=== PATIENT | male | born 2000 | race Caucasian/White ===

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

== ENCOUNTER 2019-09-11 15:40 | Emergency (ER) | payer OTHER, SELFPAY ==
[2019-09-11 15:42] VITALS: BP 154/86; PULSE 84; RESP 17; TEMP 36.2; O2SAT 98; BMI 48.1
--- NOTE | 2019-09-11 16:00 | ED.VISSUMM ---
- ER Visit Summary Date of Service: 09/11/19 Chief Complaint: Back pain History of Present Illness: The patient is a 18 M with no primary care physician. He reports he has low back pain that began approximately 2 years ago. He reports that this increased yesterday. He denies any trauma. No fall, MVA, or change in activity. He reports that the sharp pain is 10 of 10 severity. Is worsened by movement, twisting, or standing up straight. Second Tylenol and ibuprofen without relief. States that radiates down the back of both legs to the level of his knee. He denies any problems with his bowels or his bladder. No groin numbness. No red flags. Physical Examination: Vitals: Stable. Afebrile. General: A&O x 3. NAD. Cardiovascular exam: Regular rate and rhythm, no murmur, rub or gallop. Respiratory exam: Clear to auscultation bilaterally. No wheezes or stridor. Abdominal exam: Soft, nontender, nondistended, normal bowel sounds. No peritoneal signs. Back: Diffuse moderate tenderness to palpation over the lumbar spine and the paraspinous musculature in the lumbar region. No point tenderness. Negative straight leg bilaterally. 5/5 DF, PF, EHL bilaterally. Normal sensation to light touch throughout. Extremity: No clubbing, cyanosis, or edema. Emergency Department Course and Treatment: Patient was given Toradol, Norflex IM and [place] p.o. Treatment Plan: Had a prolonged discussion with the patient about symptomatic treatment. He is instructed to use warm compresses and a TENS unit. He was given a prescription for naproxen, Flexeril, and [address] [place]. Instructed follow-up Dr. Booker in 1 week if not improving. The signs and symptoms of cauda equina syndrome were discussed. He is instructed return for these. Disposition: To home in improved and stable condition. Impression: 1. Low back pain, acute on chronic. This note was generated with [employer] dictation software. It may contain incorrect words, spelling, and punctuation that were not noted in review of the chart prior to signing ED Disposition - Plan for ED Patient: Disposition: Home or Assisted Living Instructions: ED LUMBAR RADICULOPATHY Prescriptions: cycloBENZAPRine HCl [Flexeril] 10 mg PO TID PRN #20 tab PRN Reason: Muscle Spasm Prescription Printed Naproxen [Naprosyn] 500 mg PO BID #14 tab Prescription Printed Hydrocodone Bitart/Apap 5-325 [[place] 5MG-325MG] 1 tab PO Q4H PRN PRN 2 Days #10 tab PRN Reason: Pain Prescription Printed Referrals: Izzy Booker MD [STAFF PHYSICIAN] - 1 Week
[2019-09-11] MEDS: Ketorolac 60 MG/2 ML Vial IM (16:05)
[2019-09-11] MEDS: HYDROcodone Bitartrate/Apap 5/325 Tablet PO (16:05)
[2019-09-11] MEDS: Orphenadrine 60 MG/2 ML Ampul IM (16:05)
[2019-09-11 16:42] VITALS: BP 143/71; PULSE 84; RESP 18
== END 2019-09-11 16:51 | disposition home or self-care (01) ==
PROVIDERS: Emergency Provider Emergency Medicine
DX: M54.5 Low back pain (principal); G89.29 Other chronic pain
CPT/HCPCS: 96372; 99284

== ENCOUNTER → 2019-09-23 12:37 | Outpatient (CLI) | payer OTHER, SELFPAY ==
[2019-09-11 15:42] VITALS: BMI 48.1
--- NOTE | 2019-09-23 12:45 | MRI_ITS ---
STUDY: MRI LUMBAR SPINE WITHOUT CONTRAST REASON FOR EXAM: Male, 18 years old. SEVERE SHARP BACK PAIN RADIATES INTO LEGS POSTERIORLY BILATERALLY, DIFFICULTY WALKING, STANDING AND SITTING TECHNIQUE: Standardized fat and water weighted pulse sequences were obtained in the sagittal and axial planes. COMPARISON: None FINDINGS: T12-L1: Normal endplates. Normal disc height, hydration and morphology. Normal bilateral facet joints. Normal central canal and bilateral lateral recesses. Normal bilateral intervertebral neural foramina. Normal lumbar lordosis. Mild levoscoliosis centered at L2/L3. Normal conus medullaris that terminates at the L1. L1-2: Normal endplates. Normal disc height, hydration and morphology. Normal bilateral facet joints. Normal central canal and bilateral lateral recesses. Normal bilateral intervertebral neural foramina. L2-3: Normal endplates. Normal disc height, hydration and morphology. Normal bilateral facet joints. Normal central canal and bilateral lateral recesses. Normal bilateral intervertebral neural foramina. L3-4: Moderate sized central disc protrusion produces moderate spinal stenosis, mild right lateral recess stenosis, moderate left lateral recess stenosis with abutment of the left L4 nerve root and no neural foraminal stenosis. L4-5: Large (12 mm) central disc extrusion produces severe spinal stenosis, severe bilateral lateral recess stenosis with effacement of the L5 nerve roots bilaterally and mild bilateral neural foraminal stenosis. L5-S1: Normal endplates. Normal disc height, hydration and morphology. Normal bilateral facet joints. Normal central canal and bilateral lateral recesses. Normal bilateral intervertebral neural foramina. Normal visualized sacral ala. Normal visualized paraspinous soft tissue structures. MRI/Spine Lumbar (Routine) IMPRESSION: Multilevel degenerative changes, as described above. Particularly a large central disc extrusion at L4/L5 with severe spinal stenosis and severe bilateral lateral recess stenosis. Electronically Signed: Thai Reina MD at 13:49 EDT Tel , Service support ,
== END ==
PROVIDERS: Referring Provider Orthopaedic Surgery; Visit Provider Orthopaedic Surgery
DX: M54.5 Low back pain (principal); M54.16 Radiculopathy, lumbar region
CPT/HCPCS: 72148